=== PATIENT | male | born 1965 | race Caucasian/White ===

== ENCOUNTER 2021-11-10 23:35 | Emergency (ER) | payer OTHER ==
[~2021-11-10] VITALS: Ht 180.3 cm; Wt 111.1 kg
[2021-11-11 00:09] VITALS: BP 121/82
--- NOTE | 2021-11-11 00:15 | NUR ---
PT SENT TO LOBBY WITH .
--- NOTE | 2021-11-11 01:22 | NUR ---
PT TAKEN TO BED 09.
--- NOTE | 2021-11-11 01:23 | NUR ---
55 YO/M BIB SELF ACCOMPANIED BY SIG OTHER W C/O ONGOING COUGH X1 WEEK, REPORTS DURING COUGH EPISODES FACE TURNS RED, UNABLE TO BREATH AND CHEST PAIN IRRITATION LIKE PAIN 4/10 RESOLVING WHEN COUGH STOPS, +PHLEGM. PT DENIES FEVER/CHILLS, N/V/D. PT ALSO REPORTS PREVIOUS EPISODE X1 WEEK AGO OF BLOODY NOSE DRAINING TO THROAT AND CAUSING COUGH W BLOOT BUT RESOLVED. PT O2 SAT 97% ON RA. PT SITTING IN BED LOCKED IN LOWEST POSITION W X1 SIDERAIL UP, HOB ELEVATED. BREATHING EVEN AND UNLABORED. WILL CONTINUE TO MONITOR. PMH:DENIES ALLERGIES: DENIES
[2021-11-11] MEDS ORDERED: ALBUTEROL SULFATE/IPRATROPIU 3 ML SOL IH ONE (01:55)
--- NOTE | 2021-11-11 02:10 | NUR ---
RT [place] AT BEDSIDE; BREATHING TX ONGOING PER MD ORDER
[2021-11-11] MEDS ORDERED: AZIT250T4 PO (02:43)
[2021-11-11] MEDS ORDERED: PRED20TA5 PO (02:43)
--- NOTE | 2021-11-11 02:53 | NUR ---
PT DENIES ANY PAIN AT THIS TIME, REPORTS COUGH EPISODES HAVE IMPROVED. VSS.
[2021-11-11 03:06] VITALS: BP 107/60
--- NOTE | 2021-11-11 03:06 | NUR ---
Patient discharged with v/s stable. Written and verbal after care instructions given and explained. Patient alert, oriented and verbalized understanding of instructions. Ambulatory with steady gait. All questions addressed prior to discharge. ID band removed. Patient advised to follow up with PMD. Rx of AZITHROMAX, PREDNISONE given. Patient educated on indication of medication including possible reaction and side effects. Opportunity to ask questions provided and answered.
== END 2021-11-11 03:06 | disposition home or self-care (01) ==
LOC: MED 23:35
DX: J20.9 Acute bronchitis, unspecified (principal); Z79.2 Long term (current) use of antibiotics; Z79.899 Other long term (current) drug therapy
CPT/HCPCS: 71045; 93005; 94640; 99285

== ENCOUNTER 2024-05-05 04:35 | Emergency (ER) | payer SELFPAY ==
[~2024-05-05] VITALS: Ht 180.3 cm; Wt 106.6 kg
[~2024-05-05 04:35] MED LIST: AZIT250T4 PO; PRED20TA5 PO
[2024-05-05 04:40] VITALS: BP 118/82; PULSE 95; RESP 18; TEMP 97.7; O2SAT 95
[2024-05-05] MEDS ORDERED: ACET-8905 PO (06:23)
[2024-05-05] MEDS ORDERED: IBUP-2213 PO (06:23)
[2024-05-05] MEDS: KETOROLAC 60 MG/2 ML VIAL IM ONE (06:32)
== END 2024-05-05 06:33 | disposition home or self-care (01) ==
LOC: MED 04:35
DX: M25.522 Pain in left elbow (principal); R03.0 Elevated blood-pressure reading, without diagnosis of hypertension; Z79.899 Other long term (current) drug therapy
CPT/HCPCS: 73080; 99283; Q0092; J1885